=== PATIENT | female | born 1985 | race Caucasian/White ===

== ENCOUNTER 2021-08-01 21:17 | Emergency (ER) | payer SELFPAY ==
[~2021-08-01] VITALS: Ht 170.2 cm; Wt 65.8 kg
[2021-08-01 21:47] VITALS: BP 132/60
[2021-08-01] MEDS ORDERED: AMOX-430 PO (21:53)
[2021-08-01] MEDS ORDERED: DEXAMETHASONE SOD PHOSPHATE 10 MG/ML VIAL ONE (21:56)
[2021-08-01] MEDS ORDERED: KETOROLAC TROMETHAMINE 15 MG/ML VIAL ONE (21:57)
[2021-08-01] MEDS: DEXAMETHASONE SOD PHOSPHATE 10 MG/ML VIAL IM ONE (22:04)
[2021-08-01] MEDS: KETOROLAC TROMETHAMINE INJ 30 MG/ML VIAL IM ONE (22:04)
--- NOTE | 2021-08-01 22:07 | NUR ---
Patient discharged to home in stable condition. Written and verbal after care instructions given. Patient verbalizes understanding of instruction.
== END 2021-08-01 22:07 | disposition home or self-care (01) ==
LOC: ER 21:21
DX: J02.9 Acute pharyngitis, unspecified (principal)
CPT/HCPCS: 86403-TC; J1100; J1885